=== PATIENT | male | born 1990 | race Hispanic/Latino ===

== ENCOUNTER 2024-09-19 14:59 | Emergency (ER) | payer OTHER, SELFPAY ==
[2024-09-19] MEDS ORDERED: Aspirin Chewable 81 MG TAB ONE (15:13)
[2024-09-19 15:27] LABS: #Basophils 0.1 thou/uL (0.0-0.2); #Eosinophils 0.2 thou/uL (0.0-0.7); #Lymphocytes 2.2 thou/uL (1.20-3.40); #Monocytes 0.5 thou/uL (0.11-0.59); #Neutrophils 3.4 thou/uL (1.40-6.50); %Eosinophils 2.7 % (0.0-10.0); %Lymphocytes 34.5 % (21.0-51.0); %Monocytes 7.3 % (0.0-10.0); %Neutrophils 54.5 % (42.0-75.0); Hematocrit 47.6 % (42.0-52.0); Hemoglobin 16.3 g/dL (14.0-18.0); Mean Corpuscular HGB CONC 34.2 g/dL (32.0-36.0); Mean Corpuscular Hemoglobin 30.3 pg (27.0-31.0); Mean Corpuscular Volume 88.5 fl (78.0-98.0); Mean Platelet Volume 7.5 fL (7.4-10.4); Platelet Count 243 10x3/uL (130-400); RBC Distribution Width 10.6 % (11.5-14.5); Red Blood Cell (RBC) Count 5.38 mill/uL (4.70-6.10); White Blood Cell (WBC) Count 6.3 10x3/uL (4.8-10.8)
[2024-09-19 15:39] LABS: Troponin I 0.036 ng/mL (< 0.028)
[2024-09-19 15:53] LABS: ALT (SGPT) 60 U/L (8-55); AST (SGOT) 44 U/L (5-34); Albumin 4.3 g/dL (3.5-5.0); Alkaline Phosphatase 73 U/L (40-110); Anion Gap 15 mmol/L (10-20); BUN (Urea Nitrogen) 18 mg/dL (8.9-20.6); Bilirubin, Total 0.6 mg/dL (0.2-1.2); Calc. Creatinine Clearance 0 mL/min (70-130); Calcium 9.3 mg/dL (7.8-10.44); Carbon Dioxide 24 mmol/L (22-29); Chloride 104 mmol/L (98-107); Estimated GFR 83; Glucose 85 mg/dL (70-105); Potassium 3.7 mmol/L (3.5-5.1); Protein, Total 7.3 g/dL (6.0-8.3); Sodium 139 mmol/L (136-145)
[2024-09-19 16:00] LABS: Bilirubin Negative (Negative); Blood, Urine Negative (Negative); Clarity Clear (Clear); Glucose, Urine (Dipstick) Negative (Negative); Ketone, Urine Negative (Negative); Leukocyte Negative (Negative); Nitrite Negative (Negative); Protein, Urine (Dipstick) Negative (Neg-Trace); pH, Urine 5.5 (5.0-9.0)
[2024-09-19 16:11] LABS: Amphetamine Not Detected (NotDetected); Barbiturates Screen Not Detected (NotDetected); Benzodiazepine Screen Detected (NotDetected); Cocaine Metabolite Screen Not Detected (NotDetected); Methadone Not Detected (NotDetected); Methamphetamine Not Detected (NotDetected); Opiate Screen Not Detected (NotDetected); Oxycodone Screen Not Detected (NotDetected); Phencyclidine (PCP) Not Detected (NotDetected); THC/Cannabinoid Screen Not Detected (NotDetected); Tricyclic Screen Not Detected (NotDetected)
[2024-09-19 16:16] LABS: Specific Gravity, Urine 1.026 (1.002-1.036)
[2024-09-19 17:12] LABS: Bacteria/HPF 1+ HPF (None Seen); CAUTI Indications for Culture Dysuria,urgency,freq; RBC/HPF 0-3 HPF (0-3); Squamous Epithelial 0-3 HPF (0-3); WBC/HPF 0-3 HPF (0-3)
[2024-09-19 17:13] LABS: Mucous/LPF 1+ LPF (<2+)
[2024-09-19 17:14] LABS: Urine Culture Reflex No No
[2024-09-19] MEDS ORDERED: Ketorolac Tromethamine 30 MG (1 mL) VIAL ONE (17:28)
[2024-09-19 18:29] LABS: Troponin I 0.027 ng/mL (< 0.028)
[2024-09-19 21:36] LABS: Troponin I 0.032 ng/mL (< 0.028)
== END 2024-09-19 22:05 | disposition short-term general hospital (02) ==
LOC: NAV ERS 14:59
DX: R07.89 Other chest pain (principal); R79.89 Other specified abnormal findings of blood chemistry
CPT/HCPCS: 36415; 71045; 80053; 80306; 81001; 84484; 85025; 93005; 94760; 96374; J1885

== ENCOUNTER 2025-07-20 11:19 | Emergency (ER) | payer OTHER, SELFPAY | END 2025-07-20 11:51 | disposition home or self-care (01) | LOC: NAV ERS 11:19 | DX: K08.89 Other specified disorders of teeth and supporting structures (principal); K02.9 Dental caries, unspecified; H10.9 Unspecified conjunctivitis; F17.290 Nicotine dependence, other tobacco product, uncomplicated | CPT/HCPCS: 99282 ==